=== PATIENT | female | born 1995 | race Caucasian/White ===

== ENCOUNTER 2022-09-25 13:45 | Outpatient (CLI) | payer OTHER, SELFPAY ==
--- NOTE | 2022-09-25 14:05 | US_ITS ---
WS: [id number] ULTRASOUND RIGHT axilla. Axilla HISTORY: Palpable nodule, 26-year-old. COMPARISON: None available. TECHNIQUE: 2-D and Doppler. No suspicious masses identified in the RIGHT axilla. There is a benign lymph node measuring 1.5 x 0.6 x 1.5 cm. US/US breast RT limited* [id number] IMPRESSION: BI-RADS: 1-Negative FOLLOW-UP: See Report Benign RIGHT axillary lymph node. No mass.
== END 2022-09-25 13:46 | disposition home or self-care (01) ==
PROVIDERS: PCP Family Medicine; Visit Provider Advanced Practice Midwife
DX: N63.41 Unspecified lump in right breast, subareolar (principal)
CPT/HCPCS: 76642

== ENCOUNTER 2024-03-06 15:18 | Day surgery (SDC) | payer SELFPAY ==
[2024-03-06] VITALS (18 sets, daily range): BP systolic 93–131; BP diastolic 61–82; PULSE 76–102; RESP 13–27; TEMP 36.2–36.9; O2SAT 93–101; BMI 30.7
--- NOTE | 2024-03-06 16:04 | ED_ITS ---
HPI - Abdominal Pain 2 General: Chief Complaint: Abdominal Pain Stated Complaint: fever, vomiting, abdominal pain Time Seen by Provider: 03/06/24 15:56 History of Present Illness: 28-year-old female presents emergency ro om complaining of periumbilical pain that began yesterday. She last ate around suppertime last night she has not eaten today she has vomited several times a bolus like vomit a few streaks of blood in it she has had multiple episodes of vomiting no argelia bloody emesis. No previous abdominal surgeries. Subjectively she reports feeling hot and chilled but has not actually measured a temperature. Associated Symptoms: Reports nausea and vomiting; Denies chills, dysuria and fever(s) Related Data Date of Last Menstrual Period: 02/23/24 Home Medications Medication Instructions Recorded Confirmed [id number]-[id number] PO 01/15/21 Allergies Allergy/AdvReac Type Severity Reaction Status Date / Time No Known Allergies Allergy Verified 03/06/24 15:36 Review of Systems 2 Const: Denies: fever(s) or chills Card: Denies: chest pain Resp: Denies: dyspnea GI: Reports: abdominal pain, nausea and vomiting : Denies: dysuria, urinary frequency or urinary urgency Musc: Denies: neck pain or back pain Skin/Breast: Denies: rash PFSH ED 2 PFSH: Family History Denies family history of Colon cancer Ovarian cancer Diabetes Heart disease Hypercholesteremia Breast cancer Hypertension Uterine cancer Thyroid disease Stroke Social History Smoking and tobacco/nicotine status: current every day tobacco/nicotine user Female Reproductive History: Date of last menstrual period: 02/23/24 Physical Exam 2 Const: GENERAL APPEARANCE: cooperative ORIENTATION/CONSCIOUSNESS: Yes awake, Yes oriented to person, Yes oriented to place and Yes oriented to time HENMT: COMMON NORMALS: normocephalic, atraumatic and hearing grossly normal bilaterally HEAD & SCALP: normocephalic and atraumatic Resp: COMMON NORMALS: normal respiratory effort, No retractions, No use of accessory muscles and clear to auscultation bilaterally AUSCULTATION: clear to auscultation bilaterally Cardio: COMMON NORMALS: regular rate, regular rhythm and No murmurs present (Cardio) RATE: regular rate RHYTHM: regular rhythm GI: AUSCULTATION: Yes normoactive bowel sounds PALPATION: Yes Tenderness to palpation present (GI) and Yes Guarding due to palpation present (GI) in the RLQ Extremity: COMMON NORMALS: normal to inspection, capillary refill normal, no clubbing, cyanosis or edema, no calf tenderness and no pedal edema Neuro: SENSORIUM/ORIENTATION: Yes oriented to person, Yes oriented to place and Yes oriented to time Skin: COMMON NORMALS: no rashes or lesions noted GENERAL SKIN EXAM: no rashes or lesions noted Course 2 Vital Signs: Vital signs: Vital Signs Temperature 97.1 F L 03/06/24 19:13 Pulse Rate 99 03/06/24 19:13 Respiratory Rate 18 03/06/24 19:13 Blood Pressure 116/69 03/06/24 20:05 Pulse Oximetry 99 03/06/24 19:13 Oxygen Delivery Me thod Room Air 03/06/24 19:13 MDM - Abdominal Pain Medical Decision Making Leukocytosis acute appendicitis exam consistent with acute appendicitis. CT shows same no evidence of rupture. Patient has been given Protonix also given Zosyn fluids pain and nausea medications consulted general surgery Dr. Kelly is on-call he asked the patient be admitted and he will take her to the OR from the floor in a few hours. Medical Records I reviewed the patient's medical records. Lab Data I reviewed the patient's lab results. 03/06/24 16:01 03/06/24 16:01 Labs/Radiology: Radiology Impressions Abdomen/Pelvis CT 03/06/24 16:17 IMPRESSION: 1. Acute appendicitis, as described above. No abscess, obstruction or free air. 2. Additional findings, as above. ADDENDUM: 03/06/24 0122 ADDENDUM: THIS REPORT CONTAINS FINDINGS THAT MAY BE CRITICAL TO PATIENT CARE. The findings were verbally communicated via telephone conference with ALPHONSO RIVERA at 5:21 PM CDT on 03/06/2024. The findings were acknowledged and understood. Laboratory Results WBC 17.44 10^3/uL (3.29-11.43) H 03/06/24 16:01 RBC 5.28 10^6/uL (3.85-5.65) 03/06/24 16:01 Hgb 15.20 g/dL (11.27-16.99) 03/06/24 16:01 Hct 45.4 % (36-47) 03/06/24 16:01 MCV 86.0 fl (85-98) 03/06/24 16:01 MCH 28.8 pg (27-33) 03/06/24 16: MCHC 33.5 g/dL (30-55) 03/06/24 16:01 RDW 13.2 % (12.1-15.1) 03/06/24 16:01 Plt Count 353 10^3/cmm (157-399) 03/06/24 16:01 MPV 9.6 fL (7.4-10.4) 03/06/24 16:01 Neut % (Auto) 86.5 % 03/06/24 16: Lymph % (Auto) 8.3 % 03/06/24 16:01 [place] % (Auto) 4.4 % 03/06/24 16:01 Eos % (Auto) 0.3 % 03/06/24 16:01 Baso % (Auto) 0.2 % 03/06/24 16:01 Neut # (Auto) 15.08 10^3/uL (1.8-7.7) H 03/06/24 16:01 Lymph # (Auto) 1.5 10^3/uL (0.8-4.8) 03/06/24 16:01 [place] # (Auto) 0.8 10^3/uL (0.2-0.9) 03/06/24 16:01 Eos # (Auto) 0.1 10^3/uL (0.0-0.8) 03/06/24 16:01 Baso # (Auto) 0.0 10^3/uL (0.0-0.1) 03/06/24 16:01 Nucleated RBC % (auto) 0 % 03/06/24 16: Nucleated RBCs # 0.0 /100WBC 03/06/24 16: PT 12.20 SECONDS (12.1-14.9) 03/06/24 16:01 INR 0.88 (0.8-1.2) 03/06/24 16:01 APTT 26.8 SECONDS (23.9-36.7) 03/06/24 16:01 Sodium 139 mmol/L (136-145) 03/06/24 16:01 Potassium 3.8 mmol/L (3.5-5.1) 03/06/24 16:01 Chloride 101 mmol/L (98-107) 03/06/24 16:01 Carbon Dioxide 21 mmol/L (22-29) L 03/06/24 16:01 Anion Gap 20.8 (5-19) H 03/06/24 16:01 BUN 12 mg/dL (6-20) 03/06/24 16:01 Creatinine 0.7 mg/dL (0.5-0.9) 03/06/24 16:01 GFR Calculation 99.6 mL/min (90-130) 03/06/24 16:01 Glucose 115 mg/dL (65-115) 03/06/24 16:01 Calculated Osmolality 289 mOsm/kg (285-295) 03/06/24 16:01 Calcium 9.6 mg/dL (8.5-10.5) 03/06/24 16:01 Total Bilirubin 0.7 mg/dL (0.15-1.2) 03/06/24 16:01 AST 21 U/L (0-32) 03/06/24 16:01 ALT 25 U/L (0-33) 03/06/24 16:01 Alkaline Phosphatase 83 U/L (35-105) 03/06/24 16:01 Total Protein 8.7 g/dL (6.6-8.7) 03/06/24 16:01 Albumin 4.7 g/dL (3.5-5.2) 03/06/24 16:01 Globulin 4.0 g/dL (1.3-4.6) 03/06/24 16:01 Lipase 40 U/L (13-60) 03/06/24 16:01 HCG, Qual Negative (Negative) 03/06/24 16:01 All radiology interpretation(s) finalized by discharge Discharge Plan Discharge Patient Disposition: Admitted As Inpatient Clinical Impression: Acute appendicitis Condition: Stable Coding Level of Care Code ED Manager [employer] for Madeline Yeboah
--- NOTE | 2024-03-06 16:17 | CTR_ITS ---
PROCEDURE INFORMATION: Exam: CT Abdomen And Pelvis Without Contrast Exam date and time: 03/06/2024 4:45 PM Age: 28 years old Clinical indication: Abdominal pain; Generalized TECHNIQUE: Imaging protocol: Computed tomography of the abdomen and pelvis without contrast. Axial, coronal and sagittal reformatted images were created and reviewed. Radiation optimization: All CT scans at this facility use at least one of these dose optimization techniques: automated exposure control; mA and/or kV adjustment per patient size (includes targeted exams where dose is matched to clinical indication); or iterative reconstruction. COMPARISON: No relevant prior studies available. RADIATION DOSE METRICS: Total DLP (mGy-cm): 806.23 FINDINGS: Liver: Unremarkable. Gallbladder and biliary ducts: Cholelithiasis. Pancreas: Unremarkable. Spleen: Unremarkable. Adrenal glands: Normal. No mass. Kidneys and ureters: No mass. No radiodense calculi. No hydronephrosis. Stomach and bowel: No bowel wall thickening. No obstruction. No pneumatosis. Appendix: Dilated, thickwalled, hyperemic appendix with mild periappendiceal inflammatory change and an intraluminal appendicolith. Intraperitoneal space: Trace nonspecific free pelvic fluid, likely physiologic. No organized fluid collection. No free air. Vasculature: Unremarkable. No aneurysm. Lymph nodes: Small mesenteric lymph nodes, likely reactive. No pathologically enlarged lymph nodes. Urinary bladder: Unremarkable as visualized. Reproductive: Unremarkable. Bones/joints: No acute osseous abnormality. Mild degenerative changes. Soft tissues: Unremarkable. CT/CT abdomen pelvis wo con [id number] IMPRESSION: 1. Acute appendicitis, as described above. No abscess, obstruction or free air. 2. Additional findings, as above.
[2024-03-06 16:18] LABS: Basophils % 0.2 %; Eosinophils # 0.1 10^3/uL (0.0-0.8); Eosinophils % 0.3 %; Hematocrit 45.4 % (36-47); Lymphocytes # 1.5 10^3/uL (0.8-4.8); Lymphocytes % 8.3 %; Mean Corpuscular HGB Conc 33.5 g/dL (30-55); Mean Corpuscular Hemoglobin 28.8 pg (27-33); Mean Platelet Volume 9.6 fL (7.4-10.4); Monocytes # 0.8 10^3/uL (0.2-0.9); Monocytes % 4.4 %; Neutrophils # 15.08 10^3/uL (1.8-7.7); Neutrophils % 86.5 %; Nucleated Red Blood Cells % 0 %; Platelet Count 353 10^3/cmm (157-399); Red Blood Count 5.28 10^6/uL (3.85-5.65); Red Cell Distribution Width 13.2 % (12.1-15.1); White Blood Count 17.44 10^3/uL (3.29-11.43)
[2024-03-06 16:21] LABS: Partial Thromboplastin Time 26.8 SECONDS (23.9-36.7)
[2024-03-06] MEDS: sodium chloride 0.9% 1,000 ML 999 ML IV ×2 (16:22→18:07)
[2024-03-06 16:25] LABS: Alanine Aminotransferase 25 U/L (0-33); Albumin Level 4.7 g/dL (3.5-5.2); Alkaline Phosphatase 83 U/L (35-105); Anion Gap 20.8 (5-19); Aspartate Amino Transferase 21 U/L (0-32); Blood Urea Nitrogen 12 mg/dL (6-20); Calcium 9.6 mg/dL (8.5-10.5); Carbon Dioxide 21 mmol/L (22-29); Chloride 101 mmol/L (98-107); Creatinine Clr Calc Pharmacy 132.3227; Glomerular Filtration Rate 99.6 mL/min (90-130); Glucose 115 mg/dL (65-115); Lipase 40 U/L (13-60); Osmolality Calculated 289 mOsm/kg (285-295); Potassium 3.8 mmol/L (3.5-5.1); Sodium 139 mmol/L (136-145); Total Bilirubin 0.7 mg/dL (0.15-1.2); Total Protein 8.7 g/dL (6.6-8.7)
[2024-03-06] MEDS: ondansetron 2 mg/ML SDV 2 mL 4 MG IVP ×2 (16:32→20:00)
[2024-03-06] MEDS: morphine 4 mg/mL SDV 1 mL IVP (16:32)
[2024-03-06 16:39] LABS: HCG, Serum Qual Negative (Negative)
[2024-03-06 16:52] LABS: INR 0.88 (0.8-1.2)
[2024-03-06] MEDS: piperacillin-tazobactam 3.375 GM in sodium chloride 0.9% (plus) 50 ML IV (18:08)
--- NOTE | 2024-03-06 19:50 | ANES.PREANE2 ---
Pre-Anesthetic Assessment Height/Weight: Height 1.68 m Weight 86.183 kg Temp Pulse Resp BP Pulse Ox O2 Del Method 97.1 F L 99 18 131/82 99 Room Air 03/06/24 19:13 03/06/24 19:13 03/06/24 19:13 03/06/24 19:13 03/06/24 19:13 03/06/24 19:13 Operation Date: 03/06/24 20:00 Proposed Procedures p Laparoscopic Appendectomy(Not Applicable) - Alexei Kelly MD Familial anesthetic complications: None Was Beta Edgar taken within 24 hours: N/A Was Clonidine taken within 24 hours: N/A Last intake: > 8 hrs Social Tobacco and No alcohol Exam alert, oriented x 3, clear to auscultation bilaterally and regular rate & rhythm Airway Mallampati: Class I Dentition: chipped (bottom front chipped) Anesthetic Plan ASA status: 1 Anesthesia: General Risk of > 500 ml blood loss (7ml/kg in children): No Medications/Allergies Home Medications Medication Instructions Recorded Confirmed Last Taken Type Atq-[id number] PO 01/15/21 Unknown History Allergies Allergy/AdvReac Type Severity Reaction Status Date / Time No Known Allergies Allergy Verified 03/06/24 15:36 [facility] Anesthesia Family History Denies family history of Colon cancer Ovarian cancer Diabetes Heart disease Hypercholesteremia Breast cancer Hypertension Uterine cancer Thyroid disease Stroke Social History Smoking and tobacco/nicotine status: current every day tobacco/nicotine user Female Reproductive History Date of last menstrual period: 02/23/24 Data Anesthesia 03/06/24 16:01 03/06/24 16:01 Short CBC 03/06/24 Range/Units 16:01 WBC 17.44 H (3.29-11.43) 10^3/uL Hgb 15.20 (11.27-16.99) g/dL Hct 45.4 (36-47) % MCV 86.0 (85-98) fl Plt Count 353 (157-399) 10^3/cmm Neut % (Auto) 86.5 % Neut # (Auto) 15.08 H (1.8-7.7) 10^3/uL BMP 03/06/24 16:01 Sodium 139 Potassium 3.8 Chloride 101 Carbon Dioxide 21 L BUN 12 Creatinine 0.7 Glucose 115 Calcium 9.6 Liver Function 03/06/24 Range/Units 16:01 Total Bilirubin 0.7 (0.15-1.2) mg/dL AST 21 (0-32) U/L ALT 25 (0-33) U/L Alkaline Phosphatase 83 (35-105) U/L Albumin 4.7 (3.5-5.2) g/dL Coags 03/06/24 16:01 PT 12.20 INR 0.88 APTT 26.8 Cardiac Studies: No Data to Display
[2024-03-06] MEDS: sodium chloride 0.9% 1,000 ML 30 ML IV (20:01)
[2024-03-06] MEDS: scopolamine 1.5 Patch 1 PATCH TRANSDERMA (20:05)
--- NOTE | 2024-03-06 20:09 | P.HP_ITS ---
Providers/Chief Complaint 2 Primary Care Provider: Arcadio Alexandra MD Chief Complaint: fever, vomitting, abdominal pain History of Present Illness Camila Morris is a 28 year old female who presents with acute appendicitis. Reports 3 days of pain. Nausea, vomiting, fevers. RLQ pain. Medications/Allergies Home Medications Medication Instructions Recorded Confirmed Last Taken Type Cgj-Sm-[id number] PO 01/15/21 Unknown History Allergies Allergy/AdvReac Type Severity Reaction Status Date / Time No Known Allergies Allergy Verified 03/06/24 15:36 PFSH Acute 2 PFSH: Family History Denies family history of Colon cancer Ovarian cancer Diabetes Heart disease Hypercholesteremia Breast cancer Hypertension Uterine cancer Thyroid disease Stroke Social History Smoking and tobacco/nicotine status: current every day tobacco/nicotine user Female Reproductive History: Date of last menstrual period: 02/23/24 Vitals/I&O/Wt Last Vital Signs Temp 97.1 F L 03/06/24 19:13 Pulse 99 03/06/24 19:13 Resp 18 03/06/24 19:13 BP 116/69 03/06/24 20:05 Pulse Ox 99 03/06/24 19:13 O2 Del Method Room Air 03/06/24 19:13 03/06/24 03/06/24 03/06/24 06:59 14:59 22:59 Intake Total 1000 / 1000 Balance 1000 / 1000 Weight last 48 hrs Weight 190 lb Physical Exam 2 Narrative: Heart: RRR Lungs: unlabored breathing RA Abdomen: soft, TTP RLQ, distended, non peritonitic. Data 03/06/24 16:01 03/06/24 16:01 A&P Assessment and plan (1) Acute appendicitis: Plan 28yo F with acute appendicitis. Discussed risks and benefits of laparoscopic appendectomy, possible open and patient agreed to proceed. Attestations 2 Medical Necessity Statement*: IV antibiotics, IVFs, proceeding with laparoscopic appendectomy Coding Level of Care Code 41131 Diagnoses Acute appendicitis K35.80 Time Spent (min) 30
[2024-03-06] MEDS: metroNIDAZOLE IV 500 MG/100 ML PREMIX 100 MG IV (20:18)
[2024-03-06] MEDS: cefTRIAXone 2,000 mg SDV 2000 MG IVP (20:18)
[2024-03-06] MEDS: lidocaine-epi 1% PF 1:200,000 30 mL SDV INJECTION (20:40)
[2024-03-06] MEDS: BUPivacaine 0.25% INJ 10 mL INJECTION (20:40)
--- NOTE | 2024-03-06 21:35 | W.PM.BPONFUL ---
Pathology: appendix Implant(s): NA Anesthesia: general anesthesia Complications: None Brief history/preop diagnosis: 28yo female who came in with acute appendicitis. Discussed risks and benefits of laparoscopic appendectomy, possible open and she agreed to proceed. Full operative report: Patient was wheeled into the operative room and placed on the OR table in a supine position. SCDs were functional prior to induction. Rocephin flagyl were administered as well. Abdomen was inspected prepped and draped in usual sterile fashion. Time-out was performed and all present were in agreement. An 11 blade scalp was used to make a stab incision in the left upper quadrant and intra-abdominal insufflation was achieved using a Veress needle. A 5 millimeter trocar was placed in the umbilicus as well as a suprapubic 5mm port, and a 12 mm port in the left lower quadrant . The appendix was identified and was inflamed. I used the Ligasure to ligate the mesoappendix at the base. I then stapled off the base of the apendix using endoscopic surgical stapler with a green load. The appendix was removed from the abdomen using an Endo-Catch bag through the right lower quadran incision. I examined the abdomen and no further pathology was identified. Hemostasis was noted. I irrigated the right iliac fossa with 500cc warm NS, and confirmed that the staple line was intact. A 19F Ritesh drain was left next to the staple line on the cecum. All ports removed. Skin was washed and dried. Incisions were closed with 4 O Vicryl in a subcuticular interrupted fashion. Skin glue was applied. Patient tolerated the procedure well. Condition: stable Dispostion: home
[2024-03-06] MEDS: acetaminophen 1,000 MG/100 ML PIGGYBACK 400 MG IV (22:14)
--- NOTE | 2024-03-06 23:00 | ANE.PACU2 ---
Inpatient post-anesthesia follow up: Airway intact: Yes Vital signs: Temperature 98.2 F Pulse Rate 82 Respiratory Rate 18 Blood Pressure 120/72 Pulse Oximetry 97 Oxygen Delivery Me thod Room Air Oxygen Flow Rate 6 Fraction of Inspir ed Oxygen Hydration adequate: Yes Nausea and vomiting: No Pain level: 1 Mental status: Baseline
== END 2024-03-06 23:10 | disposition home or self-care (01) ==
LOC: ER 19:02 → MEDSURG 21:27 → OR 03-09 06:27 → ER 03-09 06:27
PROVIDERS: Emergency Provider Family Medicine; PCP Family Medicine; Visit Provider Student in an Organized Health Care Education/Training Program
PROC: 0DTJ4ZZ Resection of Appendix, Percutaneous Endoscopic Approach (ICD-10-PCS; CPT 44970; principal; 2024-03-06 20:00)
DX: K35.80 Unspecified acute appendicitis (principal); F17.200 Nicotine dependence, unspecified, uncomplicated
CPT/HCPCS: 44970; 36415; 74176; 80053; 83690; 84703; 85025; 85610; 85730; 88304; J0131; J0696; J1170; J2250; J2270; J2371; J2405; J2543; J2704; J3010; J3490; J7030